=== PATIENT | female | born 1985 | race Caucasian/White ===

== ENCOUNTER 2017-02-10 11:26 | Emergency (ER) | payer OTHER ==
[2017-02-10 11:42] VITALS: BP 132/92
--- NOTE | 2017-02-10 14:08 | ED Physician Documentation ---
History of Present Illness - Stated complaint Stated Complaint: ANXIETY/8WKS PREG - Chief complaint Chief Complaint: MHE - History obtained from History obtained from: Patient - History of Present Illness Timing: How many weeks ago (6) Pain level max: 0 Pain level now: 0 Improved by: nothing Worsened by: nothing - Additonal information Additional information: Patient is a 31-year-old female who presents to the emergency department with increasing anxiety for the past 6 weeks. Thinks she is approximately 8 weeks . Has an appointment with her OB on Sunday. Used to be on Xanax, but stopped 6 months ago. Denies any SI or HI. Denies any hallucinations. Is not currently seeing a counselor. Review of Systems Constitutional: denies: Fever, Chills Nose: denies: Rhinorrhea / runny nose, Congestion Throat: denies: Sore throat Cardiac: denies: Chest pain / pressure Respiratory: denies: Cough GI: denies: Abdominal Pain, Nausea, Vomiting, Diarrhea : reports: Now EGA (8 weeks). denies: Dysuria, Frequency, Hesitancy , Vaginal bleeding Skin: denies: Rash Musculoskeletal: denies: Neck pain, Back pain PD PAST MEDICAL HISTORY - Past Medical History Past Medical History: Yes Cardiovascular: Murmur Psych: Anxiety - Past Surgical History Past Surgical History: Yes /NODULIZER: LEEP (Cervical surgery) - Present Medications Home Medications: Ambulatory Orders Medication Instructions Recorded Confirmed Pnv95/Ferrous Fumarate/FA 1 each PO DAILY 02/10/17 02/10/17 [ Tablet] - Allergies Allergies/Adverse Reactions: Allergies Allergy/AdvReac Type Severity Reaction Status Date / Time No Known Drug Allergies Allergy Verified 02/10/17 11:42 - Social History Does the pt smoke?: Yes Smoking Status: Current every day smoker Does the pt drink ETOH?: No Does the pt have substance abuse?: No - Immunizations Immunizations are current?: No - POLST Patient has POLST: No PD ED PE NORMAL - Vitals Vital signs reviewed: Yes - General General: Alert and oriented X 3, No acute distress - HEENT HEENT: Moist mucous membranes - Neck Neck: Supple, no meningeal sign - Cardiac Cardiac: RRR, Strong equal pulses - Respiratory Respiratory: No respiratory distress, Clear bilaterally - Abdomen Abdomen: Soft, Non tender, Non distended - Derm Derm: Warm and dry - Neuro Neuro: Alert and oriented X 3 - Psych Psych: Other (anxiety) Results - Vitals Vitals: Vital Signs - 24 hr 02/10/17 11:39 Temperature 36.8 C Heart Rate 103 H Respiratory 18 Rate Blood Pressure 132/92 H O2 Saturation 100 Oxygen O2 Source Room air PD MEDICAL DECISION MAKING - ED course Complexity details: considered differential, d/w patient, d/w family, d/w real estate listing consultant ED course: Patient is a 31-year-old female with a history of anxiety who has been increasingly anxious over the past several weeks. She is approximately 8 weeks . No abdominal pain, no cramping, no vaginal bleeding or discharge. Consulted social work who spoke with the patient and was given resources to follow up with on days. Will utilize Benadryl as needed for sleep. Patient denies any suicidal or homicidal ideation. Patient and family counseled regarding signs and symptoms for which I believe and urgent re-evaluation would be necessary. Patient with good understanding of and agreement to plan and is comfortable going home at this time This document was made in part using voice recognition software. While efforts are made to proofread this document, sound alike and grammatical errors may occur. Departure - Departure Disposition: 01 Home, Self Care Clinical Impression: Anxiety Condition: Good Instructions: ED Panic Attack Follow-Up: Mer Perla MD [Primary Care Provider] - Within 3 Days Comments: Follow up with the resources that Meenu gave you today. Return if you worsen. You can try benadryl at night to help you sleep. Discharge Date/Time: 02/10/17 14:28
== END 2017-02-10 14:28 | disposition home or self-care (01) ==
LOC: ED 11:26
DX: O99.341 Other mental disorders complicating pregnancy, first trimester (principal); F41.9 Anxiety disorder, unspecified; O99.331 Smoking (tobacco) complicating pregnancy, first trimester; Z3A.08 8 weeks gestation of pregnancy
CPT/HCPCS: 99283